=== PATIENT | male | born 1965 | race Caucasian/White ===

== ENCOUNTER 2018-04-17 11:28 | Day surgery (SDC) | payer OTHER ==
[~2018-04-17 11:28] MED LIST: ONDANSETRON 4 MG INJ
[2018-04-17] MEDS ORDERED: BUPIVACAINE 0.25% (MPF) 30 ML INJ (14:55)
[2018-04-17] MEDS ORDERED: POLYMYXIN/BACITRACIN 1L IRRIG (14:55)
[2018-04-17] MEDS ORDERED: MIDAZOLAM 1 MG/ML 2 ML INJ (15:18)
[2018-04-17] MEDS: CEFAZOLIN 2 GM/50 ML (PMX) 50 ML IVPB (15:18)
[2018-04-17] MEDS ORDERED: SOD CHLORIDE 0.9% 1,000 ML IV (15:30)
[2018-04-17] MEDS: BUPIVACAINE 0.25% (MPF) 30 ML INJ (15:44)
[2018-04-17] MEDS: POLYMYXIN/BACITRACIN 1L IRRIG (15:44)
[2018-04-17] MEDS ORDERED: PROPOFOL 20 ML (16:16)
[2018-04-17] MEDS ORDERED: GLYCOPYRROLATE 0.4 MG INJ (16:16)
[2018-04-17] MEDS ORDERED: LIDOCAINE 2% (SDV) 5 ML INJ (16:16)
[2018-04-17] MEDS ORDERED: NEOSTIGMINE 3 MG/3 ML SYRINGE (16:16)
[2018-04-17] MEDS ORDERED: ROCURONIUM 50 MG INJ (16:16)
[2018-04-17] MEDS ORDERED: CEFAZOLIN 1 GM INJ (16:17)
[2018-04-17] MEDS ORDERED: FENTAnyl 50 MCG/ML VIAL (16:27)
[2018-04-17] MEDS ORDERED: HYDROmorphONE 1 MG/5 ML IV SYRINGE IV ×2 (16:30)
[2018-04-17] MEDS ORDERED: METOCLOPRAMIDE 10 MG INJ IV (16:30)
[2018-04-17] MEDS ORDERED: DIPHENHYDRAMINE 50 MG INJ IV (16:30)
[2018-04-17] MEDS ORDERED: ONDANSETRON 4 MG INJ IV (16:30)
[2018-04-17] MEDS ORDERED: KETOROLAC 30 MG INJ IV (16:30)
[2018-04-17] MEDS ORDERED: MEPERIDINE 25 MG INJ IV (16:30)
[2018-04-17] MEDS: FENTAnyl 50 MCG/ML VIAL IV ×2 (17:00→17:06)
[2018-04-17] MEDS ORDERED: EPHEDrine SULFATE 50 MG/5 ML SYG (17:11)
[2018-04-17] MEDS: HYDROCODONE/APAP (5/325) TAB PO (17:50)
== END 2018-04-17 18:25 | disposition home or self-care (01) ==
LOC: SDS 11:28
DX: K40.30 Unilateral inguinal hernia, with obstruction, without gangrene, not specified as recurrent (principal)
CPT/HCPCS: 49507